=== PATIENT | female | born 1990 | race Caucasian/White ===

== ENCOUNTER 2017-05-02 06:34 | Inpatient (IN) | payer OTHER ==
[2017-05-02] MEDS ORDERED: Witch Hazel PAD* JAR TOPICAL PRN (12:20)
[2017-05-02] MEDS ORDERED: Glycerin ADULT SUPP PR PRN (12:20)
[2017-05-02] MEDS ORDERED: Dibucaine 1% 28.35 GM TUBE PR PRN (12:20)
[2017-05-02] MEDS ORDERED: Acetaminophen TAB* 325 MG PO PRN (12:20)
[2017-05-02] MEDS: Docusate CAP* 100 MG PO SCH ×2 (14:18→19:58)
[2017-05-02] MEDS: Simethicone CHEW TAB* 80 MG PO SCH (19:30)
[2017-05-03] MEDS: Ibuprofen TAB* 600 MG PO PRN ×2 (00:49→15:30)
[2017-05-03 04:29] VITALS: BP 118/59
[2017-05-03 06:54] LABS: Hematocrit 37 % (35-47); Hemoglobin 12.4 g/dl (12.0-16.0); Mean Corpuscular HGB Conc 34 g/dl (31-36); Mean Corpuscular Hemoglobin 31 pg (27-31); Mean Corpuscular Volume 93 fL (80-97); Mean Platelet Volume 11 um3 (7.4-10.4); Red Blood Count 3.99 10^6/ul (4.0-5.4); Red Cell Distribution Width 14 % (10.5-15); White Blood Count 14.1 10^3/ul (3.5-10.8)
[2017-05-03] MEDS ORDERED: Influenza VAC *QUAD* 2017-18* 0.5 ML SYRINGE IM ONE (09:00)
[2017-05-03] MEDS ORDERED: Ferrous Gluconate TAB* 324 MG TAB PO SCH (09:00)
[2017-05-03] MEDS: Docusate CAP* 100 MG PO SCH ×2 (10:56→15:30)
== END 2017-05-03 16:46 | disposition home or self-care (01) | DRG 560 ==
LOC: MCHOBOUT 06:34 → MCHOB 06:53
PROVIDERS: ADMIT Midwife; ATTEND Midwife
PROC: 10E0XZZ Delivery of Products of Conception, External Approach (ICD-10-PCS; principal; 2017-05-02)
PROC: 0HQ9XZZ Repair Perineum Skin, External Approach (ICD-10-PCS; 2017-05-02)
DX: O48.0 Post-term pregnancy (principal); O77.0 Labor and delivery complicated by meconium in amniotic fluid; Z3A.40 40 weeks gestation of pregnancy; O70.0 First degree perineal laceration during delivery; O69.89X0 Labor and delivery complicated by other cord complications, not applicable or unspecified; Z37.0 Single live birth
CPT/HCPCS: 36415; 85025; 90686; A9270-GY

== ENCOUNTER 2018-04-12 07:57 | Emergency (ER) | payer OTHER ==
[2018-04-12 09:59] VITALS: BP 157/97
--- NOTE | 2018-04-12 10:06 | ED ---
Throat Pain/Nasal Congestion - HPI Summary HPI Summary: Pt. is a 27 y/o female who presents to the ER for worsening left ear pain x several days. Pt. states pain started to left ear 4 days ago and saw her PCP. She was rx ofloxacin drops. Associated symptoms of drainage and facial pain. Pt. states that her left ear is not getting any better and that her right ear is hurting too. She has no past medical history. Denies fever, chills, n/v. Symptoms are mild in severity. Touching ear and face makes symptoms worse. Nothing makes symptoms better. Pt. states she has been taking motrin with minimal improvement of pain. - History of Current Complaint Chief Complaint: EDEarPain Time Seen by Provider: 04/12/18 08:09 Hx Obtained From: Patient - Allergies/Home Medications Allergies/Adverse Reactions: Allergies Allergy/AdvReac Type Severity Reaction Status Date / Time No Known Allergies Allergy Verified 04/12/18 08:05 PMH/Surg Hx/FS Hx/Imm Hx Previously Healthy: Yes - Immunization History Immunizations Up to Date: Yes Infectious Disease History: No Infectious Disease History: Denies: Traveled Outside the [place] in Last 30 Days - Family History Known Family History: Positive: Other - noncontributory - Social History Occupation: Unemployed Lives: With Family Alcohol Use: None Substance Use Type: Reports: None Smoking Status (MU): Never Smoked Tobacco Review of Systems Constitutional: Negative Eyes: Negative Positive: Ear Ache Cardiovascular: Negative Respiratory: Negative Gastrointestinal: Negative All Other Systems Reviewed And Are Negative: Yes Physical Exam Triage Information Reviewed: Yes Vital Signs On Initial Exam: Initial Vitals Temp Pulse Resp BP Pulse Ox 98.3 F 62 18 140/87 98 04/12/18 08:03 04/12/18 08:03 04/12/18 08:03 04/12/18 08:03 04/12/18 08:03 Vital Signs Reviewed: Yes Appearance: Positive: Well-Appearing - Pt. sitting on bed in NAD. Skin: Positive: Warm, Dry Head/Face: Positive: Normal Head/Face Inspection Eyes: Positive: Normal, Conjunctiva Clear ENT: Positive: Pharynx normal, Other - Left ear canal is edematous and macerated. Mild wet drainage. Unable to visualize TM seconary to edema. Mild edema to right canal. Neck: Positive: Supple, Nontender, No Lymphadenopathy, Nuchal Rigidity Respiratory/Lung Sounds: Positive: Clear to Auscultation, Breath Sounds Present Cardiovascular: Positive: Normal, RRR Neurological: Positive: Normal, CN Intact II-III Psychiatric: Positive: Affect/Mood Appropriate Diagnostics - Vital Signs Vital Signs Temp Pulse Resp BP Pulse Ox 04/12/18 09:54 97.5 F 55 16 157/97 100 04/12/18 08:03 98.3 F 62 18 140/87 98 - Laboratory Lab Statement: Any lab studies that have been ordered have been reviewed, and results considered in the medical decision making process. EENT Course/Dx - Course Course Of Treatment: Pt. presenting with a 4 day hx of otitis externa. She has had no improvement with ofloxacin drops. She is afebrile and nontoxic appearing. Ear culture was obtained. Ear wick was placed to left canal. Will have pt. continue ofloxacin in bilateral ears. Will wait for culture to change antibx. Small rx for ultram given. To continue NSAIDS. To call PCP today for a f.u apt. To return to ER if sxs change or worsen. PT. understands and agrees with plan. - Differential Diagnoses Differential Diagnoses: Mastoiditis, Odontogenic Pain, Otitis Externa, Otitis Media, Pharyngitis - Diagnoses Provider Diagnoses: Otitis externa Discharge - Sign-Out/Discharge Documenting (check all that apply): Patient Departure - Discharge Plan Condition: Good Disposition: HOME Prescriptions: Ofloxacin 0.3% OTIC.JC* [Floxin 0.3% OTIC.JC*] 10 drop .SEE ORDER ONCE #1 btl traMADol TAB* [Ultram*] 25 mg PO Q6HR PRN #12 tab MDD 4 tablets PRN Reason: Pain Patient Education Materials: Otitis Externa (ED) Referrals: Marcelle Bishop CNM [Primary Care Provider] - Additional Instructions: Call PCP today to schedule a follow up appointment Continue ear drops as directed Pain medication as directed Continue ibuprofen as directed for pain Apply warm compresses Return to ER if symptoms change or worsen - Billing Disposition and Condition Condition: GOOD Disposition: Home
== END 2018-04-12 09:59 | disposition home or self-care (01) ==
LOC: ED 07:57
DX: H60.92 Unspecified otitis externa, left ear (principal)
CPT/HCPCS: 87070; 87205; 99282